=== PATIENT | female | born 1965 | race Caucasian/White ===

== ENCOUNTER 2022-08-29 16:33 | Emergency (ER) | payer MEDICARE ==
[~2022-08-29] VITALS: Ht 165.1 cm; Wt 70.3 kg
== END 2022-08-29 23:45 | disposition home or self-care (01) ==
LOC: ER 16:33
DX: L03.311 Cellulitis of abdominal wall (principal); Z88.2 Allergy status to sulfonamides; Z88.1 Allergy status to other antibiotic agents
CPT/HCPCS: 36415; 74177; A9270; J1885; Q9967